=== PATIENT | male | born 1985 | race Caucasian/White ===

== ENCOUNTER 2022-09-01 10:42 | Emergency (ER) | payer MEDICAID ==
[~2022-09-01] VITALS: Ht 180.3 cm; Wt 68.0 kg
[2022-09-01 10:52] VITALS: BP 109/57
--- NOTE | 2022-09-01 10:55 | NUR ---
PT AMBULATED TO LOBBY
--- NOTE | 2022-09-01 11:04 | NUR ---
37/M WALKED IN C/O LOW BACK PAIN ONSET LAST NIGHT. DENIES FALL OR TRAUMA. 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 REPORTS 10/10 CONSTANT ACHING PAIN. AAO4, AMBULATORY, VITALS STABLE, NO ACUTE DISTRESS NOTED PMH: DENIES
[2022-09-01] MEDS ORDERED: KETOROLAC 30 MG/ML VIAL IM ONE (13:20)
[2022-09-01] MEDS ORDERED: CYCL-711 PO (13:59)
[2022-09-01] MEDS ORDERED: LID5T TP (13:59)
[2022-09-01] MEDS ORDERED: IBUP-2213 PO (13:59)
[2022-09-01 14:14] VITALS: BP 125/68
== END 2022-09-01 14:14 | disposition home or self-care (01) ==
LOC: MED 10:42
DX: M54.50 Low back pain, unspecified (principal)
CPT/HCPCS: 96372; 99283; J1885